=== PATIENT | male | born 1980 | race Caucasian/White ===

== ENCOUNTER 2017-09-16 16:16 | Emergency (ER) | payer BC ==
[2017-09-16] MEDS ORDERED: Lidocaine 1% (PF) 30 ML VIAL ONE (16:34)
[2017-09-16] MEDS ORDERED: Ibuprofen 800 MG TAB ONE (16:48)
[2017-09-16] MEDS ORDERED: Adacel (T-DAP) 0.5 ML VIAL ONE (16:48)
== END 2017-09-16 17:27 | disposition home or self-care (01) ==
LOC: ERS 16:16
DX: S61.412A Laceration without foreign body of left hand, initial encounter (principal); E78.5 Hyperlipidemia, unspecified; Z79.899 Other long term (current) drug therapy; W26.0XXA Contact with knife, initial encounter
CPT/HCPCS: 12001; 90471; 90715; J2001